=== PATIENT | male | born 1965 | race Hispanic/Latino ===

== ENCOUNTER → 2019-10-08 | Outpatient (CLI) | payer MEDICARE ==
[~2019-10-08] VITALS: Ht 162.6 cm; Wt 67.6 kg
[~2019-10-08] MED LIST: REGADENOSON 0.4 MG/5 ML PF SYG IVP SCH
== END | disposition home or self-care (01) ==
LOC: SHCH 07:51
PROVIDERS: ATTEND Internal Medicine Cardiovascular Disease
DX: I10 Essential (primary) hypertension (principal); R94.31 Abnormal electrocardiogram [ECG] [EKG]
CPT/HCPCS: 78452; 93017; 96374; A9500 ×2; J2785

== ENCOUNTER → 2019-11-13 | Outpatient (CLI) | payer MEDICARE | END | disposition home or self-care (01) | LOC: EDUNIT# 10-23 13:30 → SHCH 08:54 | PROVIDERS: ATTEND Internal Medicine Cardiovascular Disease | DX: I11.9 Hypertensive heart disease without heart failure (principal) | CPT/HCPCS: 93306; 93356 ==

== ENCOUNTER 2019-12-31 05:55 | Day surgery (SDC) | payer MEDICARE ==
[2019-12-29 11:35] LABS: BASOPHILS % (AUTO) 0.4 % (0.0-5.0); EOSINOPHILS % (AUTO) 2.4 % (0.0-8.0); LYMPHOCYTES % (AUTO) 12.1 % (21.0-51.0); MEAN CORPUSCULAR HEMOGLOBIN 32.4 pg (27.0-33.0); MEAN CORPUSCULAR HGB CONC 33.6 g/dL (32.0-36.0); MEAN CORPUSCULAR VOLUME 96.5 fL (79-99); NEUTROPHILS % (AUTO) 77.9 % (40.0-77.0); PLATELET COUNT (AUTO) 98 K/uL (130-400); RED BLOOD CELL COUNT(AUTO) 2.59 MIL/uL (4.50-6.20); RED CELL DISTRIBUTION WIDTH 12.5 % (11.0-15.5); WHITE BLOOD COUNT (AUTO) 9.4 K/uL (4.8-10.8)
[2019-12-29 11:46] LABS: CREATININE 6.7 mg/dL (0.5-1.5)
[2019-12-29 11:55] LABS: INR 1.01 (0.85-1.15); PARTIAL THROMBOPLASTIN TIME 27.8 SEC (26.3-35.5); PROTHROMBIN TIME 10.9 SEC (9.6-11.6)
[2019-12-29 13:01] VITALS: BP 136/68
[2019-12-30 11:03] LABS: APPEARANCE,URINE Clear (CLEAR); BILIRUBIN,URINE Negative (NEGATIVE); COLOR,URINE Yellow (YELLOW); GLUCOSE, URINE (UA) TRACE mg/dL (NEGATIVE); KETONES,URINE Negative (NEGATIVE); LEUKOCYTE ESTERASE ,URINE Negative (NEGATIVE); NITRATE,URINE Negative (NEGATIVE); OCCULT BLOOD,URINE Negative (NEGATIVE); PH,URINE 8.5 (5.0-8.0); PROTEIN,URINE 300 mg/dL (NEGATIVE); UROBILINOGEN,URINE 0.2 mg/dL (0.2-1.0)
[2019-12-30 11:55] LABS: BACTERIA,URINE None Seen /HPF (None Seen); RBC,URINE 0-1 /HPF (0-1); SQUAMOUS EPITHELIAL CELL,UR 0-2 /HPF (0-2); WBC,URINE 0-1 /HPF (0-1)
--- NOTE | 2019-12-30 12:14 | NUR ---
Spoke to John PERDOMO and reported shot peen operator 1.9 and bun 53, no new orders okay to proceed. Addendum: 12/30/19 at 1221 by MOHIT FAIRCHILD RN RN Also notified John perdomo about ua with large leukest, wbc >100, no new orders. Addendum: 12/30/19 at 1226 by MOHIT FAIRCHILD RN RN documented on wrong patient
--- NOTE | 2019-12-30 12:26 | NUR ---
reported to John Valdovinos pa h/h 8.4 and 25.0, plt 98, bun 53, systems navigator 6.7 , no new orders at this moment, if any new orders, John Valdovinos will call back.
--- NOTE | 2019-12-30 12:42 | NUR ---
John Valdovinos called back in regards to h/h, okay to proceed.
[~2019-12-31] VITALS: Ht 165.1 cm; Wt 72.3 kg
[2019-12-31] VITALS (8 sets, daily range): BP systolic 106–146; BP diastolic 44–78
[~2019-12-31 05:55] MED LIST changes: +AEC81 PO; +AMLO-257 PO; +ATOR20TA65 PO; +ATRO10DR OP; +BETA1TAB18 PO; +BRIN8DRO OP; +DIFL5DRO OP; +ERYT1OIN7 OP; +HYDR-3420 PO; +LORA10TA7 PO; +METO25TA6 PO; +MINO2.5T3 PO; +MVIT PO; +NETA2.5D3 OP; +NITR0.4T50 SL; -REGADENOSON 0.4 MG/5 ML PF SYG IVP SCH
[2019-12-31] MEDS ORDERED: SODIUM CHLORIDE 0.9% 1000ML 1,000 ML IV ONE (06:30)
--- NOTE | 2019-12-31 07:24 | NUR ---
PRE-PROCEDURE RECEIVED TO DAY 15 AMBULATING WITH CANE FOR SCHEDULED LHC. ACCOMPANIED BY SISTER. CORONARY ANGIOGRAM, BILATERAL RENAL ANGIOGRAM. AWAKE IN NO ACUTE DISTRESS. DENIES PAIN. HX: LEGALLY BLIND. DIALYSIS M,W,F. RIGHT FOOT TRANSMETATARSAL AMPUTATION. CONNECTED TO CONTINUOUS CARDIOPULMONARY MONITORING. SIDE RAILS UP X2, BED IN LOWEST POSITION, AND CALL LIGHT W/IN REACH.
[2019-12-31] MEDS ORDERED: IOHEXOL 350 MG/ML 100ML INFUS..BTL IV ONE ×2 (09:33→10:27)
[2019-12-31] MEDS ORDERED: IOHEXOL-350 50ML VIAL IV ONE (09:33)
[2019-12-31] MEDS ORDERED: BIVALIRUDIN 250 MG/VIAL IV ONE (09:33)
[2019-12-31] MEDS ORDERED: MIDAZOLAM HCL 1 MG/ML 2ML VIAL ONE (09:33)
[2019-12-31] MEDS ORDERED: HEPARIN SODIUM 1000UNIT/ML 10ML VIAL ONE (09:33)
[2019-12-31] MEDS ORDERED: SODIUM BICARB 50MEQ 50ML VIAL ONE (09:33)
[2019-12-31] MEDS ORDERED: NITROGLYCERIN 2 MG/VIAL VIAL IV ONE (09:33)
[2019-12-31] MEDS ORDERED: LIDOCAINE HCL 2% 20ML ONE (09:34)
[2019-12-31] MEDS ORDERED: FENTANYL CITRATE PF 50 MCG/1 ML 2ML VIAL ONE (09:34)
--- NOTE | 2019-12-31 09:50 | NUR ---
PROCEDURE TRANSFERRED TO PRINCIPAL ACCOUNT CLERK VIA BED BY AFSHIN KUNZ RN. AWAKE IN NO ACUTE DISTRESS.
--- NOTE | 2019-12-31 11:00 | NUR ---
POST-PROCEDURE RECEIVED FROM SALES LEAD GENERATOR VIA BED S/P L HEART CATH, BILATERAL RENAL ANGIOGRAM BY AFSHIN KUNZ RN. AWAKE IN NO ACUTE DISTRESS. DENIES PAIN. CONNECTED TO CONTINUOUS CARDIOPULMONARY MONITORING. SIDE RAILS UP X2, BED IN LOWEST POSITION, AND CALL LIGHT W/IN REACH. EDUCATED TO KEEP RIGHT LEG STRAIGHT AND HEAD FLAT. PT VERBALIZED UNDERSTANDING.
[2019-12-31] MEDS ORDERED: ACETAMINOPHEN 325 MG TAB ONE (11:57)
--- NOTE | 2019-12-31 12:06 | NUR ---
ACTIVITY HOB ELEVATED TO 30 DEGREES. CATH SITE W/O SIGNS OF BLEEDING;PERCLOSE DRESSING CD&I, SITE SOFT, NON-TENDER.
[2019-12-31] MEDS ORDERED: ACETAMINOPHEN 325 MG TAB PO SCH (12:15)
--- NOTE | 2019-12-31 12:40 | NUR ---
ACTIVITY UP TO CHAIR. CATH SITE W/O SIGNS OF BLEEDING;PERCLOSE DRESSING CLEAN, DRY, AND INTACT;SITE SOFT, NON-TENDER
--- NOTE | 2019-12-31 13:10 | NUR ---
DISCHARGE DAY PT DISCHARGE INSTRUCTION SHEET, MED REC, AND PT SUMMARY REVIEWED WITH PT AND SISTER GEOVANI MULTANI. EDUCATED IF SITE STARTS BLEEDING OR FOR SWELLING TO SITE APPLY DIRECT PRESSURE AND CALL 911, RETURN TO ER FOR ANY CHEST PAIN, DIFFICULTY BREATHING, OR CHANGE IN COLOR TO RIGHT LEG. BOTH VERBALIZED UNDERSTANDING. OPPORTUNITY GIVEN TO ASK QUESTIONS. NO QUESTIONS OR CONCERNS VOICED.
--- NOTE | 2019-12-31 13:15 | NUR ---
DISCHARGE DISCHARGED VIA W/C. AWAKE IN NO ACUTE DISTRESS.
== END 2019-12-31 13:15 | disposition home or self-care (01) ==
LOC: DAH 05:55
PROVIDERS: ATTEND Internal Medicine Cardiovascular Disease
DX: I25.10 Atherosclerotic heart disease of native coronary artery without angina pectoris (principal); I13.2 Hypertensive heart and chronic kidney disease with heart failure and with stage 5 chronic kidney disease, or end stage renal disease; E11.22 Type 2 diabetes mellitus with diabetic chronic kidney disease; N18.5 Chronic kidney disease, stage 5; I50.41 Acute combined systolic (congestive) and diastolic (congestive) heart failure; Z99.2 Dependence on renal dialysis; Z79.82 Long term (current) use of aspirin; Z79.899 Other long term (current) drug therapy; Z79.2 Long term (current) use of antibiotics; Z87.891 Personal history of nicotine dependence; Z82.49 Family history of ischemic heart disease and other diseases of the circulatory system; Z83.3 Family history of diabetes mellitus
CPT/HCPCS: 36252; 36415; 71045; 80048; 81001; 82948 ×3; 85025; 85610; 85730; 93005; 93458; A4215; A4216; A4221; A4222; A4223 ×3; A4606; A4663; C1760; C1894 ×2; J1644; J2250; J3010; J3490 ×3; J7030; Q9965 ×3; Q9967 ×2; 99156; 99157; J0583